=== PATIENT | male | born 1995 ===

== ENCOUNTER 2020-04-16 17:17 | Observation (INO) | payer BC, SELFPAY ==
[2020-04-16 17:20] VITALS: BP 178/83; PULSE 84; RESP 18; TEMP 37.1; O2SAT 98; BMI 30.8
--- NOTE | 2020-04-16 17:22 | ED_ITS ---
HPI - Psych General: Chief Complaint: Psychiatric Symptoms Stated Complaint: 96 HOUR Time Seen by Provider: 04/16/20 17:18 Source: patient and police Mode of arrival: other (police) Limitations: no limitations History of Present Illness: HPI Narrative: 24-year-old male who is here with [facility] police. Patient got arrested 2 days ago for breaking and entering. Patient in the [facility] had been quite combative and having auditory hallucinations. Patient placed on a 96-hour hold. Patient admits to drug use and states he has been hearing things. He denies any suicidality at this point. He is cooperative here. Associated symptoms: Reports auditory hallucinations Review of Systems Const: Denies: fever(s), chills, body aches or change in appetite Eyes: Denies: blurry vision or eye discomfort ENMT: Denies: throat pain or dental pain Card: Denies: chest pain Resp: Denies: dyspnea GI: Denies: abdominal pain, nausea, vomiting or diarrhea : Denies: dysuria Musc: Denies: neck pain or back pain Skin/Breast: Denies: rash Neuro: Denies: headache(s) Psych: Reports: mood swings, irritability, paranoia and auditory hallucinations Hermann/Lymph: Denies: easy bruising All/Imm: Denies: urticaria Physical Exam Const: COMMON NORMALS: no acute distress, patient oriented x3 and healthy appearing HENMT: COMMON NORMALS: normocephalic and atraumatic HEAD & SCALP: normocephalic and atraumatic Eye: COMMON NORMALS: Equal, round and reactive pupils present and EOMs intact bilaterally PUPIL: Yes Equal, round and reactive pupils present Neck/C-Spine: COMMON NORMALS: full ROM and supple Chest: COMMONS NORMALS: normal inspection of the chest and normal palpation of entire chest wall Resp: COMMON NORMALS: normal respiratory effort, No retractions, No use of accessory muscles and clear to auscultation bilaterally AUSCULTATION: clear to auscultation bilaterally Cardio: COMMON NORMALS: regular rate, regular rhythm and No murmurs present (Cardio) RATE: regular rate RHYTHM: regular rhythm GI: COMMON NORMALS: Normal to inspection, nondistended, normoactive bowel sounds present, Soft to palpation, non-tender and no masses PALPATION: Yes Soft to palpation Extremity: COMMON NORMALS: normal to inspection and full ROM Neuro: COMMON NORMALS: patient oriented x3, moves all extremities and no focal motor deficits Psych: ATTITUDE: Yes paranoid MOOD & AFFECT: Yes anxious Skin: COMMON NORMALS: no rashes or lesions noted and no wounds GENERAL SKIN EXAM: no rashes or lesions noted MDM - Psych MDM Narrative: Medical decision making narrative: Patient presents here with hallucinations along with anger issues. Patient placed on a 96-hour hold. Spoke to psychiatrist and patient is medically cleared and will admit. Lab Data: Labs: Lab Results 04/16/20 04/16/20 04/16/20 Range/Units 17:40 17:47 17:47 WBC 9.7 (4.0-10.0) 10^3/ uL RBC 4.67 (4.1-5.3) 10^6/u L Hgb 14.6 (11.7-16.6) g/dL Hct 42.2 (42.0-52.0) % MCV 90.4 (80-94) fL MCH 31.3 (28.0-34.0) pg MCHC 34.6 (30.0-36.0) g/dL RDW 11.9 L (12.1-15.1) % Plt Count 311 (130-400) 10^3/c mm MPV 11.0 H (7.4-10.4) fL Neut % (Auto) 60.8 % Lymph % (Auto) 27.4 % Oxford % (Auto) 10.3 % Eos % (Auto) 0.7 % Baso % (Auto) 0.6 % Neut # (Auto) 5.90 (1.8-7.7) 10^3/u L Lymph # (Auto) 2.7 (0.8-4.8) 10^3/u L Oxford # (Auto) 1.0 H (0.2-0.9) 10^3/u L Eos # (Auto) 0.1 (0.0-0.8) 10^3/u L Baso # (Auto) 0.1 (0.0-0.1) 10^3/u L Nucleated RBC % (a uto) 0 % Nucleated RBCs # 0.0 /100WBC Sodium 138 (136-145) mmol/L Potassium 3.5 (3.5-5.1) mmol/L Chloride 102 (98-107) mmol/L Carbon Dioxide 23 (22-29) mmol/L Anion Gap 16.5 (5-19) BUN 15 (6-20) mg/dL Creatinine 0.9 (0.7-1.2) mg/dL GFR Calculation 102.8 (90-130) mL/min Glucose 92 (65-115) mg/dL Calculated Osmolal ity 282 L (285-295) mOsm/k g Calcium 10.1 (8.5-10.5) mg/dL Total Bilirubin 0.9 (0.15-1.2) mg/dL AST 35 (0-40) U/L ALT 22 (0-41) U/L Alkaline Phosphata se 89 (40-130) IU/L Total Protein 7.6 (6.6-8.7) g/dL Albumin 5.5 H (3.5-5.2) g/dL Globulin 2.1 (1.3-4.6) g/dL Salicylates < 0.3 L (3-10) mg/dL Urine Opiates Scre en Negative (Negative) ng/mL Acetaminophen < 5.0 L (10-30) ug/mL Ur Barbiturates Sc reen Negative (Negative) ng/mL Ur Phencyclidine S crn Negative (Negative) ng/mL Ur Amphetamines Sc reen Negative (Negative) ng/mL U Benzodiazepines Scrn Negative (Negative) ng/mL Urine Cocaine Scre en Negative (Negative) ng/mL U Marijuana (THC) Screen Positive H (Negative) ng/mL Ethyl Alcohol < 10 (0-10) mg/dL Discharge Plan Discharge Patient Disposition: Admitted As Inpatient Clinical Impression: Hallucinations Condition: Stable Coding Level of Care Code 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
[2020-04-16 17:36] VITALS: PULSE 76; O2SAT 99
[2020-04-16] MEDS: LORazepam 1 mg Tablet PO (17:51)
[2020-04-16 17:53] LABS: Basophils # 0.1 10^3/uL (0.0-0.1); Basophils % 0.6 %; Eosinophils # 0.1 10^3/uL (0.0-0.8); Eosinophils % 0.7 %; Hematocrit 42.2 % (42.0-52.0); Hemoglobin 14.6 g/dL (11.7-16.6); Lymphocytes # 2.7 10^3/uL (0.8-4.8); Lymphocytes % 27.4 %; Mean Corpuscular HGB Conc 34.6 g/dL (30.0-36.0); Mean Corpuscular Hemoglobin 31.3 pg (28.0-34.0); Mean Corpuscular Volume 90.4 fL (80-94); Monocytes % 10.3 %; Neutrophils % 60.8 %; Nucleated Red Blood Cells % 0 %; Platelet Count 311 10^3/cmm (130-400); Red Blood Count 4.67 10^6/uL (4.1-5.3); Red Cell Distribution Width 11.9 % (12.1-15.1); White Blood Count 9.7 10^3/uL (4.0-10.0)
[2020-04-16 18:15] LABS: Alanine Aminotransferase 22 U/L (0-41); Albumin Level 5.5 g/dL (3.5-5.2); Alkaline Phosphatase 89 IU/L (40-130); Aspartate Amino Transferase 35 U/L (0-40); Blood Urea Nitrogen 15 mg/dL (6-20); Calcium 10.1 mg/dL (8.5-10.5); Carbon Dioxide 23 mmol/L (22-29); Chloride 102 mmol/L (98-107); Globulin 2.1 g/dL (1.3-4.6); Glomerular Filtration Rate 102.8 mL/min (90-130); Glucose 92 mg/dL (65-115); Osmolality Calculated 282 mOsm/kg (285-295); Sodium 138 mmol/L (136-145); Total Bilirubin 0.9 mg/dL (0.15-1.2); Total Protein 7.6 g/dL (6.6-8.7)
[2020-04-16 18:16] LABS: Acetaminophen < 5.0 ug/mL (10-30); Alcohol Level < 10 mg/dL (0-10); Salicylate < 0.3 mg/dL (3-10)
[2020-04-16 18:17] LABS: Anion Gap 16.5 (5-19); Potassium 3.5 mmol/L (3.5-5.1)
[2020-04-16 18:17] LABS: Amphetamines Screen Urine Negative (Negative); Barbiturates Screen Urine Negative (Negative); Benzodiazepines Screen Urine Negative (Negative); Cocaine Screen Urine Negative (Negative); Opiate Screen Urine Negative (Negative); PCP Screen Urine Negative (Negative); THC Screen Urine Positive (Negative)
[2020-04-16 18:29] VITALS: BP 155/84; PULSE 87; RESP 18; O2SAT 98
[2020-04-16 18:35] VITALS: BP 149/87; PULSE 75; RESP 18; TEMP 37.1; O2SAT 97
[2020-04-16] MEDS: hyDROXYzine 25 mg Capsule 50 MG PO (21:15)
[2020-04-16] MEDS: trazodone 50 mg Tablet PO ×2 (21:17→22:04)
[2020-04-16 22:00] VITALS: BP 163/73; PULSE 73; RESP 19; TEMP 36.7; O2SAT 95
[2020-04-16] MEDS: OLANZapine 5 mg ODT PO (22:04)
[2020-04-16] MEDS: haloperidol inj 5 mg/mL INJ 1 mL IM (22:38)
--- NOTE | 2020-04-16 23:53 | PC.NURSE ---
pt offered Prn vistaril and trazodone at . pt noted to be holding meds in his mouth, pt was asked to open meds to show he actually swallowed meds. pt then proceeded to play with said meds. after med rounds were finished, pt was noted to be taking trash bags out of other pt rooms, crumbling up soap bar and pouring shampoo into his shoes. Pt then was given PRN zyprexa and trazodone. pt was noted by security and unit staff drawing 0on TV screen, eating out of the dayroom trash bag, and irritating other pt's through out this evening. 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
[2020-04-17 06:00] VITALS: RESP 16
--- NOTE | 2020-04-17 08:30 | P.SS_ITS ---
Short Stay Summary Providers Date of Admit/Discharge: 04/17/20 Attending Provider: Aguilar Sheikh Chief Complaint: 96 HOUR HPI History of Present Illness DEYANIRA DE LA FUENTE is a 24 year old male who admits to lying to correction officers at [facility]. He said he was a monkey and had been previously diagnosed as a schizophrenic, which he now acknowledges he is not. He certainly does not have any other stigmata of a schizophrenic illness. He is perfectly normal, except for his sociopathic orientation. He had been busted for breaking and entering and caused the correction officers to feel that they were under no obligation to pursue psychiatric assessment pursuant to a 96-hour hold. I am effecting a rescission thereof. Review of Systems Narrative: Const: Denies: fever(s), chills, body aches or change in appetite Eyes: Denies: blurry vision or eye discomfort ENMT: Denies: throat pain or dental pain Card: Denies: chest pain Resp: Denies: dyspnea GI: Denies: abdominal pain, nausea, vomiting or diarrhea : Denies: dysuria Musc: Denies: neck pain or back pain Skin/Breast: Denies: rash Neuro: Denies: headache(s) Psych: Reports: depression and suicidal ideation Hermann/Lymph: Denies: easy bruising All/Imm: Denies: urticaria Home Meds/Allergies Home Medications and Allergies Home Medications Medication Instructions Recorded Confirmed Type No Known Home Medications 04/16/20 04/16/20 History Allergies Allergy/AdvReac Type Severity Reaction Status Date / Time methadone Allergy Unknown Verified 04/16/20 17:24 Vitals/I&O/Wt Last Vital Signs Temp 98.1 F 04/16/20 22:00 Pulse 73 04/16/20 22:00 Resp 16 04/17/20 06:00 BP 163/73 04/16/20 22:00 Pulse Ox 95 04/16/20 22:00 Weight last 48 hrs Weight 197 lb Physical Exam Narrative: EXAM NARRATIVE: Const: COMMON NORMALS: no acute distress, patient oriented x3, no limitations, healthy appearing and well nourished GENERAL APPEARANCE: cooperative and well developed HENMT: COMMON NORMALS: normocephalic, atraumatic, external ears normal, EAC's normal and Normal external nose present HEAD & SCALP: normal to inspection, normocephalic and atraumatic FACE & SINUS: normal facial exam and face symmetric NOSE: Normal external nose present and Normal nares present EXTERNAL EAR: Yes external ears normal EXTERNAL AUDITORY CANAL: EAC's normal MOUTH: Normal oral and palatal mucosa present, lip normal and tongue normal Eye: COMMON NORMALS: Equal, round and reactive pupils present and conjunctivae normal GENERAL EYE: appearance normal, both eyes and all related structures ALIGNMENT: Yes alignment normal PERIORBITAL: periorbital findings normal EYELID: eyelids normal CONJUNCTIVA: Yes conjunctivae normal SCLERA: sclerae normal PUPIL: Yes Equal, round and reactive pupils present Neck/C-Spine: COMMON NORMALS: full ROM, no lymphadenopathy, supple, no meningeal signs and no JVD GENERAL: Yes normal visual inspection and Yes trachea midline Chest: COMMONS NORMALS: normal inspection of the chest and normal palpation of entire chest wall Resp: COMMON NORMALS: normal respiratory effort, No retractions and No use of accessory muscles EFFORT & INSPECTION: Yes able to speak in complete sentences and Yes symmetric chest movement AUSCULTATION: no crackles, no rales, no rhonchi and no wheezes Cardio: COMMON NORMALS: no JVD, regular rate, regular rhythm, S1 normal heart sound present and S2 normal heart sound present RATE: regular rate RHYTHM: regular rhythm HEART SOUNDS: S1 normal heart sound present, S2 normal heart sound present, no click, no gallops, no murmurs, no rubs and abnormal split S2 GI: COMMON NORMALS: Soft to palpation and No hepatosplenomegaly present PALPATION: Yes Soft to palpation, No Tenderness to palpation present (GI), No Guarding due to palpation present (GI), No Rigid due to palpation, Yes No hepatosplenomegaly present, No Hernia present, No Palpable mass present and No Pulsatile mass present : COMMON NORMALS: Yes no CVA tenderness BLADDER/KIDNEY EXAM: Yes no CVA tenderness EXTERNAL FEMALE EXAM: No Hernia present Back/Pelvis: COMMON NORMALS: no CVA tenderness, thoracic and lumbar spine normal to inspection, no thoracic nor lumbar tenderness and thoraco-lumbar ROM normal Extremity: COMMON NORMALS: normal to inspection, full ROM, capillary refill normal, no joint enlargement, no clubbing, cyanosis or edema and no calf tenderness Neuro: COMMON NORMALS: patient oriented x3, CN's II-XII intact bilaterally, moves all extremities, no focal motor deficits and no sensory deficits noted MENINGEAL SIGNS: Yes no meningeal signs SPEECH: speech normal Psych: See mental status. Skin: COMMON NORMALS: no rashes or lesions noted, turgor normal, no jaundice, no petechiae and no mottling Hospital Course Admission Diagnoses: Malingering, antisocial personality disorder Hospital Course: It took about 5 minutes to ascertain the truth of the matter and this morning we undertook to effectuate a rescission of his 96-hour hold Discharge Summary: Malingering, antisocial personality disorder Diagnoses at Discharge Discharge Diagnosis (1) Antisocial personality disorder in adult: Status: Acute Problem details: Patient lied to get himself out of [facility], having been busted for breaking and entering. (2) Malingering: Status: Acute Problem details: Patient said he was schizophrenic and affirmed that he was a monkey while in snf. The correction officers felt obliged to 96 in here for work turned out to be a bogus diagnosis of schizophrenia Discharge Plan Discharge Patient Disposition: Home Condition: Stable Prescriptions: No Action No Known Home Medications RF: 0 Discharge Orders: Discharge Order (Routine); Ordered 04/17/20 Ordered By: Aguilar Sheikh Discharge Diet: Usual diet Discharge Activity: Resume usual activity Attestations Medical Necessity Statement*: This admission was necessitated by court order. The fact that the order is the product of lies and manipulation on the part of the patient is neither here nor there. We were subject to the court's degree. Time Spent in Patient Care*: greater than 30 min Specific Discharge Activities: Specific discharge activities: educating patient, discussing with correctional casework specialist/social workers/dc planners, documenting/other paperwork and evaluating patient/reviewing data Other discharge activites (optional): Filing rescission with the [facility] court. Status at Discharge: Cognitive status at discharge: cognitively intact , Behavioral status at discharge: cooperative , Functional status at discharge: independent ambulation Overall status at discharge: other (The patient never left baseline. He is the same mendacious, manipulative social path which he had been when he got here.) Quality Metrics Clinical Quality Measures: During this hospital stay, did patient experience: None Coding Level of Care Code Acute Director Of Graduate Admissions for [facility] Fwd Diagnoses Antisocial personality disorder in adult F60.2 Malingering Z76.5
[2020-04-17 09:09] VITALS: RESP 16
== END 2020-04-17 10:28 | disposition home or self-care (01) ==
LOC: ER 18:17 → NP 04-17 04:40
PROVIDERS: Emergency Provider Emergency Medicine
DX: F60.2 Antisocial personality disorder (principal); Z76.5 Malingerer [conscious simulation]
CPT/HCPCS: 12345; 36415; 80053; 80306; 80307; 85025; 96372; 99282; 99285; G0378; J1630